=== PATIENT | female | born 1990 ===

== ENCOUNTER → 2017-01-21 | Outpatient (REF) | LOC: WSOH 11:55 | DX: Z02.89 Encounter for other administrative examinations (principal) ==

== ENCOUNTER 2018-02-13 19:40 | Inpatient (IN) | payer BC ==
[2018-02-13] VITALS (13 sets, daily range): BP systolic 73–144; BP diastolic 39–77; PULSE 58–116; TEMP 97.6–98.3
[~2018-02-13] VITALS: Ht 167.6 cm; Wt 109.1 kg
[2018-02-13 21:08] LABS: BASO % 0.3 % (0.0-2.0); EOS # 0.1 (0.0-0.7); EOS % 0.4 % (0-4.0); GRAN # 9.7 (1.4-6.5); GRAN % 72.7 % (42.2-75.2); HEMATOCRIT 38.7 % (37.0-47.0); HEMOGLOBIN 13.8 g/dl (12.5-16.0); LYMPH # 2.8 (1.2-3.4); LYMPH % 20.9 % (20.0-51.0); MEAN CELL VOLUME 93 fl (80.0-100.0); MEAN CORPUSCULAR HEMOGLOBIN 33 pg (27.0-31.0); MEAN CORPUSCULAR HGB CONC 36 g/dl (33.0-37.0); MEAN PLATELET VOLUME 10.4 fl (7.4-10.4); MONO # 0.7 (0.1-0.6); MONO % 5.2 % (1.7-9.3); PLATELET COUNT 265 K/mm3 (130-400); RED BLOOD COUNT 4.16 M/mm3 (4.10-5.30); REDCELL DISTRIBUTION WIDTH-CV 13.2 % (11.5-14.5)
[2018-02-13] MEDS ORDERED: PRENATAL MVI (21:51)
[2018-02-14] VITALS (10 sets, daily range): BP systolic 112–146; BP diastolic 53–83; PULSE 81–117; TEMP 97.3–98
[2018-02-14] MEDS ORDERED: IBU600 MG PO (08:46)
[2018-02-14] MEDS ORDERED: PERCOCET 325 MG1 TA2 PO (08:47)
== END 2018-02-15 10:20 | disposition home or self-care (01) | DRG 775 ==
LOC: LDRO 19:40 → LDR 20:30 → OB 02-14 01:35
PROVIDERS: Obstetrics & Gynecology
PROC: 10E0XZZ Delivery of Products of Conception, External Approach (ICD-10-PCS; principal; 2018-02-13)
DX: O80 Encounter for full-term uncomplicated delivery (principal); Z23 Encounter for immunization; Z37.0 Single live birth; Z3A.40 40 weeks gestation of pregnancy
CPT/HCPCS: J2590; J2795; J7120